=== PATIENT | female | born 1945 | race Two or more races ===

== ENCOUNTER 2022-11-25 09:25 | Outpatient (CLI) | payer OTHER | END 2022-11-25 23:59 | disposition home or self-care (01) | LOC: LAB 09:25 | PROVIDERS: ATTEND Specialist | DX: Z01.812 Encounter for preprocedural laboratory examination (principal); Z20.822 Contact with and (suspected) exposure to COVID-19 | CPT/HCPCS: U0003; C9803 ==

== ENCOUNTER 2022-12-01 06:06 | Day surgery (SDC) | payer OTHER ==
[~2022-12-01] VITALS: Ht 149.9 cm; Wt 66.0 kg
--- NOTE | 2022-12-01 06:30 | NUR ---
MS LIBRARIAN SPECIAL LIBRARY NOTES RECEIVED PATIENT FROM HOME FOR DAY SURGERY.PATIENT IS A/O TIMES 4, LIBERIAN SPEAKER. RN NURSE JULIANNA TRANSLATED FOR ME. ALL NEEDS ATTENDED. PATIENT IS AMBULATORY . ALL CONSENTS SIGNED . STARTED IV AT THE LEFT WRIST G # 20. PATENT AND FLUSHING WELL. OVERALL SKIN INTACT. ALL SAFETY MEASURES IN PLACE. BED LOCKED IN THE LOWEST POSITION. CALL LIGHT AND TABLE IN EASY REACH. SIDE RAILS UP TIMES 2. WILL CONTINUE TO MONITOR CLOSELY.
--- NOTE | 2022-12-01 07:15 | NUR ---
RN OPENING NOTE PATIENT AWAKE IN BED RESTING, A/O X4. NO S/S OF PAIN NOTED AT THIS TIME. ON ROOM AIR, BREATHING EVEN UNLABORED, NO DISTRESS OR SHORTNESS OF BREATH NOTED. IV ACCESS L WRIST #20G, INTACT, PATENT AND FLUSHING WELL. FALL AND SAFETY MEASURES IN PLACE, BED ALARM ON, BED IN LOW AND LOCK POSITION, CALL LIGHT AND TABLE WITHIN EASY REACH, SIDE RAILS UP X2. WILL CONTINUE TO MONITOR.
--- NOTE | 2022-12-01 07:30 | NUR ---
MS CLOSING RN NOTES PATIENT IS A/O TIMES 4. VITAL SIGNS STABLE ALL CONSENTS SIGNED. AWAITING FOR SURGERY WILL ENDORSE INCOMING SHIFT NURSE FOR LEXX.
[2022-12-01 08:00] VITALS: BP 113/62
--- NOTE | 2022-12-01 08:09 | NUR ---
RN NOTE PATIENT IS NOT IN ROOM AT THE MOMENT, PATIENT WENT FOR SURGERY (RIGHT SHOULDER ARTHROSCOPY ROTATOR CUFF REPAIR AND BICEPS TENODESIS - DR MONTANEZ)
[2022-12-01] MEDS ORDERED: methylPREDNISolone ACETATE 80 MG/ML VIAL ONE (08:45)
[2022-12-01] MEDS ORDERED: EPINEPHRINE (1:1000) 1 MG/ML AMPUL ONE (08:46)
[2022-12-01] MEDS ORDERED: FENTANYL PF 100MCG/2ML AMPUL ONE (08:49)
[2022-12-01] MEDS ORDERED: BUPIVACAINE 0.5 % PF 150 MG/30 ML VIAL IJ ONE (09:00)
[2022-12-01] MEDS ORDERED: EPINEPHRINE (1:1000) 1 MG/ML AMPUL SUBCUT ONE (09:00)
[2022-12-01] MEDS ORDERED: HYDROMORPHONE 1 MG/1 ML DISP.SYRIN ONE (10:30)
[2022-12-01 11:30] VITALS: BP 125/59
--- NOTE | 2022-12-01 11:30 | NUR ---
RN NOTE PATIENT IS BACK FROM SURGERY, PATIENT V/S TAKEN STABLE AND RECORDED. PATIENT GOT PAIN MEDICATION BEFORE COMING TO THE FLOOR, PAIN LEVEL 3/10 AT THE MOMENT. PATIENT TOLERATED PROCEDURE WELL, PATIENT IS RESTING COMFORTABLY. WILL CONTINUE TO MONITOR.
[2022-12-01 15:20] VITALS: BP 114/84
--- NOTE | 2022-12-01 15:30 | NUR ---
CUSTOMER CARE VOICE CONSULTANT NOTE PATIENT DISCHARGE IN STABLE MEDICAL CONDITION. V/S TAKEN, STABLE AND RECORDED. NO IV ACCESS. NAME ARM BAND REMOVED. SKIN ASSESSMENT DONE, SKIN INTACT. ALL BELONGINGS CHECKED AND BELONGING LIST SIGNED. HEALTH TEACHING AND DISCHARGE INSTRUCTIONS GIVEN TO PATIENT AND FAMILY AND VERBALIZED UNDERSTANDING. INSTRUCT PATIENT AND FAMILY TO FOLLOW UP AND APPOINTMENT WITH DOCTOR SOBECK IN 7-10 DAYS. DISCUSSED PAIN MEDICATIONS PRESCRIBED WITH PATIENT AND FAMILY. INSTRUCT PATIENT AND FAMILY IN CASE OF EMERGENCY TO CALL 911 OR GO TO THE NEAREST ER. PATIENT LEFT UNIT VIA WHEELCHAIR WITH NO SIGNS OF DISTRESS, ACCOMPANIED BY PRESSER FIRST TO THE LOBBY. PATIENT WENT HOME WITH HER . CHARGE NURSE AWARE DISCHARGE.
== END 2022-12-01 19:00 | disposition home or self-care (01) ==
LOC: DS 06:06 → UNDOADMIN 06:07 → MED 06:07 → UNDODISIN 15:10 → DS 19:00
PROVIDERS: ATTEND Specialist
DX: M75.41 Impingement syndrome of right shoulder (principal); Z20.822 Contact with and (suspected) exposure to COVID-19; I10 Essential (primary) hypertension; M65.811 Other synovitis and tenosynovitis, right shoulder; M75.21 Bicipital tendinitis, right shoulder; Z98.890 Other specified postprocedural states; Z79.899 Other long term (current) drug therapy
CPT/HCPCS: 29827; 87081; 29826; 29828; J0690; J3490 ×3; J2704; J0171 ×2; J3010; C1713 ×2; J7030; A4217; A4565; J1170; G0378; J1040